=== PATIENT | male | born 1985 ===

== ENCOUNTER → 2018-04-22 | Outpatient (CLI) | payer SELFPAY ==
[2018-04-24 03:25] LABS: CHLAMYDIA TRACHOMATIS, NAA Negative (Negative); NEISSERIA GONORRHOEAE, NAA Negative (Negative)
== END | disposition home or self-care (01) ==
LOC: LAB SHORT 08:05 → LAB 08:05
PROVIDERS: Family Medicine
DX: R30.0 Dysuria (principal); Z20.2 Contact with and (suspected) exposure to infections with a predominantly sexual mode of transmission
CPT/HCPCS: 87491; 87591